=== PATIENT | female | born 1995 | race Caucasian/White ===

== ENCOUNTER 2018-11-15 03:30 | Emergency (ER) | payer OTHER ==
[~2018-11-15 03:30] MED LIST: bc
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
[2018-11-15 03:35] VITALS: BP 124/96
[2018-11-15] MEDS ORDERED: ACETAMINOPHEN 325 MG TAB PO ONE (03:40)
[2018-11-15] MEDS ORDERED: IBUPROFEN 600 MG TAB PO ONE (03:40)
--- NOTE | 2018-11-15 04:08 | RADIOLOGY IMAGING REPORT ---
FACILITY: [facility] PATIENT NAME: Esther Chan : 1995 MR: [id number] V: [id number] EXAM DATE: ORDERING PHYSICIAN: ZAINA GARZA TECHNOLOGIST: Location: [facility] - [place] Patient: Esther Chan : 1995 Visit/Account:[id number] Date of Sevice: 11/15/2018 WRIST: Indication: Injury. Technique: 3 views were obtained. Comparison: None available. Findings: There is no evidence of fracture, dislocation, or other acute deformity. There is uniform m ineralization of the skeletal structures. No periarticular soft tissue abnormality is identified. IMPRESSION: Negative left wrist. Report Dictated By: Alvarado Rajput MD at 11/15/2018 4:03 AM Report E-Signed By: Alvarado Rajput MD at 11/15/2018 4:04 AM WSN:[id number]
== END 2018-11-15 04:27 | disposition home or self-care (01) ==
LOC: ER 03:47
DX: S63.502A Unspecified sprain of left wrist, initial encounter (principal); Y04.8XXA Assault by other bodily force, initial encounter
CPT/HCPCS: 73110; 99283; L3908